=== PATIENT | male | born 1985 | race Caucasian/White ===

== ENCOUNTER 2025-04-10 10:11 | Emergency (ER) | payer OTHER, SELFPAY ==
[2025-04-10 10:12] VITALS: BP 123/94; PULSE 99; RESP 18; TEMP 36.6; O2SAT 99; BMI 39.3
[2025-04-10 10:17] VITALS: BP 149/98; PULSE 96; RESP 18; TEMP 36.6; O2SAT 95
--- NOTE | 2025-04-10 10:22 | EX.ED.VIS.UR ---
HPI HPI - URI History of Present Illness Chief Complaint: Cold Sx Informant: patient Narrative Narrative: Patient is a 39-year-old male with no significant PMHx presenting with hemoptysis. - Reports URI symptoms for over 2 weeks, including rhinorrhea and congestion. - Cough has been present but not the primary symptom. - This morning, experienced hemoptysis for the first time, prompting ED visit. Per picture that patient shows me it is relatively minor, few specks/clots. - Denies fever. - Reports mild dyspnea, feeling more winded than usual during activities at work. - Denies chest pain or tightness. - Developed a sore throat today, described as extending down the throat. - Diagnosed with an ear infection over the weekend; started on amoxicillin 875 mg, prescribed by a clinic. - Experiencing mild abdominal discomfort, attributing it to antibiotic use. - Denies smoking history. ROS ROS ED Constitutional Constitutional ED: Denies chills or fever(s) Eyes Eyes: Denies change in vision ENT ENT ED: Reports ear pain right (improving), nasal congestion, rhinorrhea and sore throat Cardiovascular Cardiovascular: Denies chest pain or palpitations Respiratory/Chest Respiratory/Chest: Reports cough, dyspnea on exertion and hemoptysis Gastrointestinal Gastrointestinal: Denies abdominal pain, diarrhea, nausea or vomiting Genitourinary Genitourinary ED: Denies dysuria or hematuria Musculoskeletal Musculoskeletal: Denies myalgias or neck pain Integumentary Denies abscess or rash Neurologic Neurologic: Denies headache(s), paresthesias or weakness Psychiatric Psychiatric: Denies depression or suicidal thoughts Endocrine Endocrinology: Denies polydipsia or polyuria PFSH PFSH Medical History no medical history no medical history Home Medications ?Medication ?Instructions ?Recorded ?Last Taken ?Type azithromycin 250 mg tablet See Rx Instructions PO .COMPLEX #6 04/10/25 Unknown Rx tabs Allergy/AdvReac Type Severity Reaction Status Date / Time No Known Allergies Allergy Verified 04/10/25 10:12 Social History (Updated 04/10/25 @ 10:[address] Mike Yoo MD) Smoking Status: Never smoker EXAM Physical Exam Const Vital Signs: 04/10/25 10:12 04/10/25 10:17 04/10/25 10:17 Temperature 97.8 F 97.8 F Temperature Source Oral Oral Pulse Rate 99 96 Respiratory Rate 18 18 Respiratory Effort Short of Breath Respiratory Pattern Normal Blood Pressure 123/94 H 149/98 H Blood Pressure Mean 103 115 Pulse Ox 99 95 Oxygen Delivery Method Room Air Positive well nourished and well developed General Appearance ED: well developed and NAD HEENT Reports moist mucous membranes HEENT Narrative: Right TM is mildly erythematous no bulging no perforation, left TM is normal normocephalic and atraumatic Throat: Negative for posterior oropharynx abnormal Eyes PERRL and EOMs intact bilaterally Neck no lymphadenopathy, supple and no meningeal signs Resp normal respiratory effort and clear to auscultation bilaterally Cardio no murmurs Rate: regular rate Rhythm: regular rhythm Neuro oriented x3, CN's II-XII intact bilaterally and no sensory deficits noted Sensorium / Orientation: alert Motor Exam: strength 5/5 throughout Skin Lesions: no lesions Rashes: no rashes MDM MDM MDM Narrative Medical decision making narrative: Assessment: The patient is a 39-year-old male presenting for hemoptysis after two weeks of upper respiratory congestion, runny nose, and intermittent cough now accompanied by mild exertional dyspnea and new throat soreness. Chest auscultation is clear and vitals are normal. Normal chest x-ray rules out pneumonia or other focal pulmonary pathology. Given the benign imaging and clinical picture, hemoptysis is most consistent with mucosal irritation from acute bronchitis. Ongoing ear pain is due to acute suppurative otitis media. Persistent cough despite amoxicillin raises concern for an atypical bacterial process; azithromycin coverage is warranted. Plan: - Discontinued amoxicillin course. - Prescribed Z-Grayson (azithromycin) to cover atypical respiratory pathogens and otitis media. - Provided education regarding viral/atypical bronchitis course, self-limited minor hemoptysis, and return precautions for increased bleeding or respiratory distress. - Arranged electronic prescription to patient?s preferred [place] pharmacy. - Discharged home in stable condition. Diagnostics: - Chest x-ray: normal; no infiltrate, mass, or effusion. Independently interpreted by me, Mike Yoo; radiology over-read concurs. Reevaluations: - Discussed normal chest x-ray results with patient; symptoms unchanged; patient comfortable and agrees with outpatient management. Radiography Diagnostic Testing: Clinical Impression(s) from Imaging Studies Chest X-Ray 04/10/25 10:25 IMPRESSION: Negative chest x-ray. No acute cardiopulmonary abnormalities. Reading Location: [facility] Discharge Plan Triage Chief Complaint: Cold Sx ED Provider: Mike Yoo Dx/Rx/DC Orders Clinical Impression: Acute bronchitis, Cough with hemoptysis, Acute right otitis media Instructions: Acute Bronchitis, ED Hemoptysis Prescriptions: New azithromycin 250 mg tablet See Rx Instructions PO .COMPLEX Qty: 6 0RF Rx Instructions: For 250 mg dose pack: take 500 mg today (day 1), then 250 mg for 4 days (days 2-5) [facility] [Primary Care Provider, None] - 1 Week if not improving Activity Restrictions/Additional Instructions: - Stop taking the amoxicillin 875 mg that you started for your ear infection. - Begin the prescribed azithromycin ?Z-Grayson? (prescription sent to your pharmacy) to cover both a possible atypical lung infection and your ear infection. - Your chest X-ray was normal, with no signs of pneumonia or other lung disease. - Minor blood-tinged cough is likely from irritated airways (bronchitis) and should improve over the next few days. - If you develop severe shortness of breath, chest tightness, or significant coughing up of blood, seek medical care right away. - To help with medication costs, consider using a [employer] card or your insurance plan; if you?d like the prescription sent to the [facility] pharmacy on [address] in [place], please provide that pharmacy information. Print Language: Lithuanian Disposition Disposition: Home, Self Care
--- NOTE | 2025-04-10 10:25 | RAD_ITS ---
PROCEDURE: CHEST PA AND LATERAL 04/10/2025 REASON FOR EXAM: COUGH, SOB, HEMOPTYSIS TECHNIQUE: Procedure Code: RADCXR Modality: DX Procedure: CHEST PA AND LATERAL COMPARISON: None. FINDINGS: Hardware: None. Heart: No cardiomegaly. Mediastinum: Unremarkable. Lungs: Clear. No pleural effusion or pneumothorax. Bones: No acute bony abnormalities. RAD/Chest PA and Lateral IMPRESSION: Negative chest x-ray. No acute cardiopulmonary abnormalities. Reading Location: [id number]
[2025-04-10 11:31] VITALS: BP 118/80; PULSE 78; RESP 17; TEMP 36.5; O2SAT 99
== END 2025-04-10 11:32 | disposition home or self-care (01) ==
PROVIDERS: Emergency Provider Emergency Medicine; Visit Provider Emergency Medicine
DX: J20.9 Acute bronchitis, unspecified (principal); R06.09 Other forms of dyspnea; R04.2 Hemoptysis; H66.001 Acute suppurative otitis media without spontaneous rupture of ear drum, right ear; R05.9 Cough, unspecified
CPT/HCPCS: 71046; 99282